=== PATIENT | female | born 1950 | race Caucasian/White ===

== ENCOUNTER → 2017-01-10 09:39 | Outpatient (CLI) | payer MEDICARE, OTHER | END | disposition home or self-care (01) | LOC: D.MRI 09:39 | DX: S52.121A Displaced fracture of head of right radius, initial encounter for closed fracture (principal); X58.XXXA Exposure to other specified factors, initial encounter; Y93.89 Activity, other specified; Y92.89 Other specified places as the place of occurrence of the external cause ==

== ENCOUNTER 2017-11-22 08:39 | Emergency (ER) | payer MEDICARE ==
[2017-11-22 09:28] LABS: BASOPHILS 0.2 % (0-2); HEMATOCRIT 39.1 % (36.0-48.0); HEMOGLOBIN 14.2 g/dL (12-16); IMMATURE GRANULOCYTES 0.2 % (0-5); LYMPHOCYTES 10.2 % (15-50); MCH 29.5 pg (26.0-34.0); MCHC 36.3 g/dL (31.0-37.0); MCV 81.1 fL (80.0-100.0); MEAN PLATELET VOLUME 9.5 fL (7.4-10.4); MONOCYTES 8.4 % (2-11); PLATELET COUNT 302 10x3/uL (130-400); RBC 4.82 10x6/uL (4.00-5.40); WBC 12.6 10x3/uL (4.8-10.8)
[2017-11-22 10:10] LABS: ALBUMIN 3.8 g/dL (3.4-5.0); ALKALINE PHOSPHATASE 77 U/L (46-116); ALT (SGPT) 27 U/L (10-68); BILIRUBIN - TOTAL 0.78 mg/dL (0.2-1.3); CALC OSMOLALITY 253 mosm/kg (275-300); CALCIUM 9.5 mg/dL (8.5-10.1); CARBON DIOXIDE 28.7 mmol/L (21.0-32.0); CHLORIDE - SERUM 87 mmol/L (98-107); CREATINE KINASE 462 UL (21-215); CREATININE - SERUM 1.1 mg/dL (0.6-1.3); GLUCOSE 111 mg/dL (74-106); LIPASE 552 U/L (73-393); MAGNESIUM - SERUM 1.7 mg/dL (1.8-2.4); PRO BNP 158 pg/mL (0-125); PROTEIN - SERUM 7.4 g/dL (6.4-8.2); SODIUM 126 mmol/L (136-145); UREA NITROGEN 12 mg/dL (7-18); eGFR NON AFRICAN AMERICAN 52 mL/min (90-120)
[2017-11-22 10:33] LABS: POTASSIUM - SERUM 2.6 mmol/L (3.5-5.1); TROPONIN-I < 0.017 ng/mL (0.000-0.060)
[2017-11-22 10:34] LABS: CKMB 3.5 U/L (0.0-3.6)
[2017-11-22 10:41] LABS: UDS - AMPHET NEGATIVE QUAL (NEGATIVE); UDS - BARB NEGATIVE QUAL (NEGATIVE); UDS - BENZO NEGATIVE QUAL (NEGATIVE); UDS - COCAINE NEGATIVE QUAL (NEGATIVE); UDS - OPIATE NEGATIVE QUAL (NEGATIVE); UDS - PCP NEGATIVE QUAL (NEGATIVE); UDS - THC NEGATIVE QUAL (NEGATIVE)
[2017-11-22 10:57] LABS: APPEARANCE CLOUDY (CLEAR); BILIRUBIN NEGATIVE (NEGATIVE); COLOR YELLOW (YELLOW); GLUCOSE NEGATIVE (NEGATIVE); KETONE SMALL mg/dL (NEGATIVE); NITRITE NEGATIVE (NEGATIVE); PROTEIN 3+ mg/dL (NEGATIVE); UROBILINOGEN NORMAL (NORMAL)
[2017-11-22 10:58] LABS: BACTERIA MANY /hpf (NONE SEEN); EPITHELIAL CELLS 0-5 /hpf (0-5); MUCUS <1+ /lpf (NONE SEEN); RED CELLS - URINE >50 /hpf (0-5); WHITE CELLS - URINE >50 /hpf (0-5)
== END 2017-11-22 13:46 | disposition home or self-care (01) ==
LOC: D.ER 08:39
PROVIDERS: Family Medicine
DX: E87.6 Hypokalemia (principal); E83.42 Hypomagnesemia; I10 Essential (primary) hypertension

== ENCOUNTER → 2018-07-24 09:47 | Outpatient (CLI) | payer MEDICARE ==
[~2018-07-24 09:47] MED LIST: AMBIEN5 MG PO; BAYER CHEWABLE81 MG PO; CYCLOBENZAPRINE10 MG PO; EFFEXOR XR75 MG PO; ESTRACE 0.5 MG0.5 MG PO; HYDROCHLOROTH12.5 M1 PO; MYRBETRIQ50 MG PO; NEURONTIN600 MG PO; NORVASC10 MG PO; PROTONIX20 MG PO; REQUIP1 MG PO; ULTRAM50 MG PO
[2018-08-03 07:39] VITALS: BMI 25.9
== END | disposition home or self-care (01) ==
LOC: D.MRI 09:47
DX: R22.40 Localized swelling, mass and lump, unspecified lower limb (principal)

== ENCOUNTER 2018-08-03 06:31 | Day surgery (SDC) | payer MEDICARE ==
[~2018-08-03] VITALS: Ht 172.7 cm; Wt 77.1 kg
[~2018-08-03 06:31] MED LIST changes: -AMBIEN5 MG PO; -CYCLOBENZAPRINE10 MG PO; -ULTRAM50 MG PO
[2018-08-03 06:56] LABS: HEMATOCRIT 39.1 % (36.0-48.0); HEMOGLOBIN 13.3 g/dL (12-16); MCH 29.1 pg (26.0-34.0); MCV 85.6 fL (80.0-100.0); MEAN PLATELET VOLUME 9.2 fL (7.4-10.4); RBC 4.57 10x6/uL (4.00-5.40); WBC 5.2 10x3/uL (4.8-10.8)
[2018-08-03] MEDS ORDERED: CYCLOBENZAPRINE10 MG PO (07:38)
[2018-08-03] MEDS ORDERED: AMBIEN5 MG PO (07:38)
[2018-08-03 07:39] VITALS: BP 145/75; Ht 172.7 cm; Wt 77.1 kg
[2018-08-03] MEDS ORDERED: ULTRAM50 MG PO (08:38)
--- NOTE | 2018-08-03 09:24 | NUR ---
0924 TOLERATING FULL LIQUID DIET. NO C/O NAUSEA OR VOMITING.
--- NOTE | 2018-08-03 10:23 | NUR ---
1010 IV DC'D. CATHETER INTACT. BRUISING NOTED AT SITE. PRESSURE HELD 3 MINUTES. BLEEDING STOPPED. BANDAID APPLIED. PT READY FOR DISCHARGE HOME. ABLE TO VOID PRIOR TO DISCHARGE. PT HAS C/O BELLO BUT IT IS DISSAPATING AFTER 2 CUPS OF COFFEE. B/P NORMAL.
--- NOTE | 2018-08-03 14:23 | OP ---
PATIENT NAME: FATEMEH DOCKERY MEDICAL RECORD: [id number] :50 LOCATION:D.OPS ADMISSION DATE: SURGEON: SANTI BEAN DO DATE OF OPERATION: 08/03/2018 PROCEDURE PERFORMED: Left fifth toe distal phalanx bone biopsy. PREOPERATIVE DIAGNOSIS: Left fifth toe distal phalanx bone abnormality on MRI. POSTOPERATIVE DIAGNOSIS: Left fifth toe distal phalanx bone abnormality on MRI. INDICATIONS: Ms. Dockery is a 68-year-old female presented to my office with an abnormal MRI of her left foot demonstrating an abnormality in the left distal phalanx of the fifth great toe and it said neoplasm versus hemangioma or infection. She had been on a course of antibiotics and it was quite swollen and red; however, it was not that way today. She said it kind of comes and goes like that. I informed her we could do a few things; one we could take the toe off or we could do a bone biopsy and figure out exactly what it is. She wanted to try the bone biopsy and so she was consented for. She is aware of the risks and benefits including need for further surgery, infection, bleeding, damage to nerves and vessels and signed the consent. SURGEON: Santi Bean DO DESCRIPTION OF PROCEDURE: The patient was taken to the operative suite, laid in supine position. The left lower extremity was prepped and draped in sterile fashion. A timeout was performed. Everyone was in agreeance with the correct side, site, patient and procedure. She was given 2 grams Ancef preoperatively. The left great toe then was anesthetized with a digital block with 0.25% Marcaine, approximately 6 mL of it. The incision began on the lateral side of the fifth distal phalanx of the fifth toe with a 15 blade. A hemostat was used to spread down to the distal phalanx and a Jamshidi needle was inserted. The sheath was taken out and cored out a biopsy of the distal phalanx. This was put into a specimen cup and sent to the lab for identification, culture and Gram stain. The pressure was held on the toe at that time and Dermabond was placed over the incision. She did not have the Jamshidi to go through the other side of the toe and there was a small brianna on that side as well, which was closed with Dermabond. She was then dressed with Adaptic, 4 x 4s and Kerlix, and awakened and taken to recovery in stable condition. ESTIMATED BLOOD LOSS: Minimal. COMPLICATIONS: None. TRANSINT:[id number] Voice Confirmation ID: [id number] DOCUMENT ID: [id number] SANTI BEAN DO at 1423 CC: TELLY TAPIA [id number] DICTATION DATE: 08/03/18 0842 FINE ARTS PACKER: 08/03/18 1210 [facility] 08/03/18 [id number] [place] [address]
[2018-08-10 17:10] LABS: AEROBE ID Final report (()); RESULT 1 Aerococcus viridans (())
== END 2018-08-03 10:25 | disposition home or self-care (01) ==
LOC: D.OPS 06:31 → D.PAN 09:00 → D.OPS 10:25 → D.PAN 15:30 → D.OPS 15:30
PROVIDERS: Anesthesiology; Orthopaedic Surgery
DX: M89.8X8 Other specified disorders of bone, other site (principal)